=== PATIENT | female | born 1940 | race Caucasian/White ===

== ENCOUNTER 2021-08-20 06:02 | Observation (INO) ==
[2021-08-20] MEDS ORDERED: ONDANSETRON 4 MG/2 ML VIAL IV STA ×2 (06:26→08:05)
[2021-08-20] MEDS ORDERED: SODIUM CHLORIDE 0.9% 1,000 ML IV STA (06:26)
[2021-08-20] MEDS ORDERED: fentaNYL 100 MCG/2 ML VIAL IV STA ×2 (06:27→07:59)
[2021-08-20 06:37] LABS: Basophils % 0.3 % (0.0-0.8); Eosinophils # 0.1 10*3/uL (0.0-0.87); Eosinophils % 0.7 % (0.00-10.9); Hematocrit 39.8 VOL% (35.7-47.0); Hemoglobin 12.5 GM/DL (12.0-16.0); Immature Granulocytes % 0.6 %; Immature Granulocytes Absolute 0.07 #; Lymphocytes # 1.2 10*3/uL (1.4-4.0); Lymphocytes % 9.9 % (21.3-54.2); Mean Corpuscular HGB Conc 31.4 GM/DL (32-36); Mean Platelet Volume 10.2 FL (9.6-12.0); Monocytes % 4.6 % (1.7-12.7); Neutrophils % 83.9 % (38.7-73.9); Platelet Count 248 T/CUMM (130-400); Red Blood Count 4.19 MC/CUMM (3.8-5.5); White Blood Count 12.3 T/CUMM (4-12)
[2021-08-20 06:39] LABS: Bilirubin,Urine Negative (Negative); Blood, Urine Large mg/dL (Negative); Glucose,Urine (UA) Negative (Negative); Ketones,Urine Negative (Negative); Mucus,Urine Occasional /LPF (Occasional); Nitrite,Urine Negative (Negative); Protein,Urine Negative; RBC,Urine 55 /HPF (0-4); Squamous Epithelial Cell,Urine Occasional /HPF (0-10); Urine Appearance CLEAR (Clear); Urine Color Yellow (Yellow); Urine Specific Gravity 1.023 (1.001-1.035); Urine Urobilinogen < 2.0 EU/DL (<2.0)
[2021-08-20 06:56] LABS: Alanine Aminotransferase 24 U/L (13-56); Albumin 3.9 G/DL (3.4-5.0); Alkaline Phosphatase 72 U/L (45-117); Aspartate Amino Transferase 30 U/L (0-37); Bilirubin,Total < 0.39 MG/DL (0.20-1.00); Blood Urea Nitrogen 30 MG/DL (7-18); Calcium 8.8 MG/DL (8.5-10.1); Carbon Dioxide 27 MMOL/L (21-32); Estimated Glom Filtration Rate 44 ML/MIN; Glucose 162 MG/DL (74-106); Osmolality,Calculated 284.7 MOS/KG (273-304); Potassium 3.9 MMOL/L (3.5-5.1); Sodium 138 MMOL/L (136-145)
[2021-08-20] MEDS ORDERED: KETOROLAC 30 MG/1 ML VIAL IV STA (07:59)
[2021-08-20] MEDS ORDERED: KETOROLAC 30 MG/1 ML VIAL ONE (07:59)
[2021-08-20] MEDS ORDERED: ACETAMINOPHEN 325 MG TABLET PO PRN (08:24)
[2021-08-20] MEDS ORDERED: ONDANSETRON 4 MG/2 ML VIAL IV PRN (08:24)
[2021-08-20] MEDS: SODIUM CHLORIDE 0.9% 1,000 ML IV SCH (09:15)
[2021-08-20] MEDS: DOCUSATE SODIUM 100 MG CAPSULE PO SCH ×2 (09:30→21:00)
[2021-08-20] MEDS: PANTOPRAZOLE 40 MG TABLET PO SCH (09:30)
[2021-08-20] MEDS: fentaNYL 100 MCG/2 ML VIAL IV SCH ×2 (10:40→14:55)
[2021-08-20] MEDS ORDERED: fentaNYL 100 MCG/2 ML VIAL IV PRN (17:46)
[2021-08-21] MEDS: SODIUM CHLORIDE 0.9% 1,000 ML IV SCH (03:01)
[2021-08-21 07:35] LABS: Basophils % 0.2 % (0.0-0.8); Eosinophils % 0.5 % (0.00-10.9); Hematocrit 35.5 VOL% (35.7-47.0); Hemoglobin 11.2 GM/DL (12.0-16.0); Immature Granulocytes % 0.5 %; Immature Granulocytes Absolute 0.04 #; Lymphocytes # 0.9 10*3/uL (1.4-4.0); Lymphocytes % 10.6 % (21.3-54.2); Mean Corpuscular HGB Conc 31.5 GM/DL (32-36); Mean Corpuscular Volume 95.9 FL (87-102); Mean Platelet Volume 10.2 FL (9.6-12.0); Monocytes % 6.9 % (1.7-12.7); Neutrophils % 81.3 % (38.7-73.9); Platelet Count 179 T/CUMM (130-400); Red Cell Distribution Width 13.2 % (9.3-17.3); White Blood Count 8.4 T/CUMM (4-12)
[2021-08-21 07:56] LABS: Calcium 8.5 MG/DL (8.5-10.1); Osmolality,Calculated 271.2 MOS/KG (273-304); Potassium 3.9 MMOL/L (3.5-5.1); Uric Acid 3.9 MG/DL (2.6-6.0)
[2021-08-21] MEDS: DOCUSATE SODIUM 100 MG CAPSULE PO SCH (08:53)
[2021-08-21] MEDS: PANTOPRAZOLE 40 MG TABLET PO SCH (08:54)
[2021-08-21] MEDS ORDERED: DIGOXIN 0.125 MG TABLET PO SCH (09:00)
[2021-08-21] MEDS ORDERED: CETIRIZINE 10 MG TABLET PO SCH (09:00)
[2021-08-21 12:23] VITALS: BP 127/57
== END 2021-08-21 14:35 | disposition home or self-care (01) ==
LOC: N.ED 06:02 → N.EDINP 06:02 → N.2E 11:09
PROVIDERS: ADMIT Internal Medicine; ATTEND Internal Medicine